=== PATIENT | female | born 1930 | race Caucasian/White ===

== ENCOUNTER 2016-12-02 05:39 | Day surgery (SDC) | payer BC ==
[~2016-12-02] VITALS: Ht 149.9 cm; Wt 53.1 kg
[2016-12-02] MEDS ORDERED: NEOSTIGMINE METHYLSULFATE 1 MG/ML, 10 ML VIAL IVP ONE (05:40)
[2016-12-02] MEDS ORDERED: ROCURONIUM BROMIDE 10 MG/ML (ZEMURON) IV ONE (05:40)
[2016-12-02] MEDS ORDERED: GLYCOPYRROLATE 0.2 MG/ML VIAL IJ ONE (05:40)
[2016-12-02] MEDS ORDERED: SEVOFLURANE 15 MIN GAS INH ONE (05:40)
[2016-12-02] MEDS ORDERED: PROPOFOL 200MG/ 20ML VIAL (DIPRIVAN) IV ONE (05:40)
[2016-12-02] MEDS ORDERED: BUPIVACAINE /PF 0.25% 30 ML VIAL INJ ONE (05:40)
[2016-12-02] MEDS ORDERED: fentaNYL CITRATE 250 MCG/5 ML AMP IV ONE (05:40)
[2016-12-02] MEDS ORDERED: KETOROLAC TROMETHAMINE 30 MG VIAL IVP ONE (05:40)
[2016-12-02] MEDS ORDERED: BUPIVACAINE /EPINEPHRINE/PF 0.25% 30 ML VIAL INJ ONE (05:40)
[2016-12-02] MEDS ORDERED: LR 1,000 ML IV.SOLN IV ONE (05:40)
[2016-12-02] MEDS ORDERED: NS IRRIG SOLN 1000 ML IR ONE (05:40)
[2016-12-02] MEDS ORDERED: NS 1000 ML BAG IV ONE (05:40)
[2016-12-02] MEDS ORDERED: MIDAZOLAM HCL 5 MG/ML VIAL (VERSED) IV ONE (05:40)
[2016-12-02] MEDS ORDERED: ONDANSETRON HCL 4 MG/2 ML VIAL IVP ONE (05:40)
[2016-12-02] MEDS ORDERED: CEFAZOLIN SOD 1 GM/ ISO 50 ML PREMIX IV ONE (07:15)
[2016-12-02] MEDS ORDERED: IOHEXOL 50 ML IV ONE (07:49)
[2016-12-02] MEDS ORDERED: POLYMYXIN 500,000/BACIT.10,000 UNITS in NS IRR 1 L IR ONE (07:53)
[2016-12-02] MEDS ORDERED: LR 1,000 ML IV SCH (08:05)
[2016-12-02] MEDS ORDERED: ONDANSETRON HCL 4 MG/2 ML VIAL IVP PRN (08:15)
[2016-12-02] MEDS ORDERED: MEPERIDINE HCL/PF 25 MG/ML DISP.SYRIN IVP PRN ×2 (08:15)
[2016-12-02] MEDS ORDERED: HYDROmorphone 2 MG/ML VIAL IVP PRN (08:15)
[2016-12-02] MEDS ORDERED: ePHEDrine sulfate 50 MG/ML VIAL IVP PRN (08:15)
[2016-12-02] MEDS ORDERED: HYDROmorphone 1 MG INJ. 1 MG/ML AMPUL IVP PRN ×2 (08:15→09:30)
[2016-12-02] MEDS ORDERED: D5/0.45 NS 1,000 ML IV SCH (09:20)
[2016-12-02] MEDS ORDERED: HYDROcodone/ACETAMIN 5-325 MG TAB (NORCO/ VICODIN) PO PRN ×2 (09:30)
[2016-12-02] MEDS ORDERED: HYDROmorphone 1 MG INJ. 1 MG/ML AMPUL ONE (09:31)
[2016-12-02 11:58] VITALS: BP_SYST 127
== END 2016-12-02 11:55 | disposition home or self-care (01) ==
LOC: SDS 05:39 → STU 05:39 → SDS 11:55
PROVIDERS: ATTEND Colon & Rectal Surgery
DX: D49.0 Neoplasm of unspecified behavior of digestive system (principal); K42.9 Umbilical hernia without obstruction or gangrene; K43.2 Incisional hernia without obstruction or gangrene; K82.8 Other specified diseases of gallbladder
CPT/HCPCS: 47563; 49565; 49568; 49585; 76000; 88304; C1727; C1781; J0690; J1170; Q9967; J1885; J2250; J2405; J2704; J2710; J3010; J3490; J7030; J7120